=== PATIENT | female | born 1970 | race Two or more races ===

== ENCOUNTER 2020-10-01 10:48 | Emergency (ER) | payer OTHER ==
[2020-10-01 10:55] VITALS: BP 127/68; PULSE 60; TEMP 98; BMI 43.0
[2020-10-01] MEDS ORDERED: SODIUM CHLORIDE 1,000 ML IV STA (11:17)
[2020-10-01] MEDS ORDERED: ACETAMINOPHEN 1000 MG/100 ML VIAL (NON FORMULARY) IVPB ONE (11:17)
[2020-10-01] MEDS ORDERED: METOCLOPRAMIDE HCL INJECTION 10 MG/2 ML VIAL IVPB ONE (11:18)
[2020-10-01] MEDS ORDERED: METOCLOPRAMIDE HCL INJECTION 10 MG/2 ML VIAL ONE (11:33)
[2020-10-01] MEDS ORDERED: ACETAMINOPHEN INJECTION 100 ML IVPB ONE (11:33)
[2020-10-01 11:52] LABS: EOS % 1.9 % (0-4.5); HEMATOCRIT 36.3 % (32.4-45.2); HEMOGLOBIN 11.7 GM/dL (10.7-15.3); LYMPH % 37.9 % (8-40); MCH 27.5 pg (25.7-33.7); MCHC 32.3 g/dl (32.0-36.0); MEAN CELL VOLUME 85.1 fl (80-96); MEAN PLT VOLUME 8.9 fl (7.5-11.1); MONO % 10.2 % (3.8-10.2); PLATELET COUNT 196 10^3/uL (134-434); RBC 4.27 M/mm3 (3.60-5.2); RDW 14.7 % (11.6-15.6); WHITE BLOOD COUNT 5.8 K/mm3 (4.0-10.0)
[2020-10-01 12:17] LABS: ALBUMIN 3.2 g/dl (3.4-5.0); BLOOD UREA NITROGEN 13.8 mg/dL (7-18); CALCIUM 8.7 mg/dL (8.5-10.1)
[2020-10-01 12:20] LABS: CREATININE 0.6 mg/dL (0.55-1.3)
[2020-10-01 12:22] LABS: BILIRUBIN,TOTAL 0.2 mg/dL (0.2-1); TOT PROT 7.3 g/dl (6.4-8.2)
== END 2020-10-01 14:17 | disposition home or self-care (01) ==
LOC: JER 10:48
PROC: 3E0333Z Introduction of Anti-inflammatory into Peripheral Vein, Percutaneous Approach (ICD-10-PCS; principal; 2020-10-01)
PROC: 3E033GC Introduction of Other Therapeutic Substance into Peripheral Vein, Percutaneous Approach (ICD-10-PCS; 2020-10-01)
PROC: 3E0337Z Introduction of Electrolytic and Water Balance Substance into Peripheral Vein, Percutaneous Approach (ICD-10-PCS; 2020-10-01)
DX: R51.9 Headache, unspecified (principal); R11.0 Nausea
CPT/HCPCS: 36415; 80053; 84703; 85025; 99284-25; J0131

== ENCOUNTER 2021-08-28 11:22 | Emergency (ER) | payer OTHER ==
[2021-08-28 11:41] VITALS: BP 118/71; PULSE 83; TEMP 98.2; BMI 48.2
[2021-08-28] MEDS ORDERED: FAMOTIDINE 20 MG TABLET PO ONE (12:01)
[2021-08-28] MEDS ORDERED: DEXAMETHASONE LIQUID 0.5 MG/5 ML PO ONE (12:01)
[2021-08-28] MEDS ORDERED: diphenhydrAMINE HCL 50 MG CAPSULE PO ONE (12:01)
[2021-08-28] MEDS ORDERED: diphenhydrAMINE HCL 25 MG CAPSULE (FP) PO ONE (12:09)
[2021-08-28] MEDS ORDERED: FAMOTIDINE 20 MG TABLET ONE (12:09)
[2021-08-28] MEDS ORDERED: DEXAMETHASONE SOD PHOSPHATE 10 MG/1 ML VIAL ONE (12:09)
== END 2021-08-28 15:18 | disposition home or self-care (01) ==
LOC: JERFT 11:22
DX: T78.3XXA Angioneurotic edema, initial encounter (principal)
CPT/HCPCS: 99283-25